=== PATIENT | male | born 2000 | race Two or more races ===

== ENCOUNTER 2024-10-06 22:17 | Emergency (ER) | payer BC, SELFPAY ==
[2024-10-06 22:20] VITALS: BMI 39.1
[2024-10-06 22:43] VITALS: BP 155/96; PULSE 104; RESP 18; TEMP 36.4; O2SAT 96
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
--- NOTE | 2024-10-06 23:08 | PC.NURSE ---
Pt to room [address] at [address] time [address] CT scan; assumed care.
[2024-10-06 23:14] VITALS: BP 162/96; PULSE 92; RESP 18; O2SAT 98
[2024-10-06 23:45] LABS: Alcohol, Urine Negative (Negative); Amphetamine/Methamp Scrn,U Negative (Negative); Barbiturate Screen,Urine Negative (Negative); Benzodiazepines Screen,Urine Negative (Negative); Benzoylecgonine Screen, Ur Negative (Negative); Fentanyl Screen,Urine Negative (Negative); Opiate Screen,Urine Negative (Negative); THC Screen,Urine Negative (Negative)
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
[2024-10-07 00:48] VITALS: BP 150/104; PULSE 81; RESP 18; O2SAT 98
== END 2024-10-07 00:46 | disposition home or self-care (01) ==
PROVIDERS: Emergency Provider Emergency Medicine; Referring Provider Emergency Medicine
DX: S06.0XAA Concussion with loss of consciousness status unknown, initial encounter (principal); V43.52XA Car driver injured in collision with other type car in traffic accident, initial encounter; Y92.410 Unspecified street and highway as the place of occurrence of the external cause
CPT/HCPCS: 70450; 72125; 80307; 80320; 99284; G0480